=== PATIENT | male | born 1975 | race Caucasian/White ===

== ENCOUNTER 2022-11-26 20:29 | Inpatient (IN) | payer OTHER ==
[~2022-11-26] VITALS: Ht 167.6 cm; Wt 118.8 kg
[2022-11-26 23:32] LABS: BASOPHILS % 0.5 % (0.0-2.0); EOSINOPHILS % 3.1 % (0.0-5.0); HEMATOCRIT. 39.8 % (42.0-52.0); HEMOGLOBIN. 13.5 g/dL (14.0-18.0); LYMPHOCYTES % 12.3 % (20.0-50.0); MEAN CORPUSCULAR HEMOGLOBIN 30.2 pg (28.0-32.0); MEAN CORPUSCULAR VOLUME 88.8 fL (80.0-94.0); MEAN PLATELET VOLUME 7.5 fl (7.4-10.4); MONOCYTES % 7.1 % (2.0-8.0); PLATELET 295 x1000/uL (130-400); RED BLOOD CELL COUNT 4.48 mill/uL (4.7-6.1); RED CELL DISTRIBUTION WIDTH 13.4 % (11.6-14.6)
[2022-11-26 23:45] LABS: PROTHROMBIN TIME 10.3 sec (9.6-11.0)
[2022-11-26] MEDS ORDERED: PIPERACILLIN/TAZ 3.375G PREMIX 50 ML IV ONE (23:45)
[2022-11-26] MEDS ORDERED: SODIUM CHLORIDE 0.9% 1,000 ML IV ONE (23:45)
[2022-11-26] MEDS ORDERED: VANCOMYCIN 1G PREMIX 200 ML IV ONE (23:45)
[2022-11-26 23:59] LABS: CLARITY URINE CLEAR (CLEAR); COLOR URINE YELLOW (YELLOW); KETONES URINE NEGATIVE (NEGATIVE); LEUKOCYTE ESTERASE URINE NEGATIVE (NEGATIVE); NITRITE URINE NEGATIVE (NEGATIVE); OCCULT BLOOD URINE TRACE (NEGATIVE); PH URINE 5.5 (4.5-8.0); PROTEIN URINE 3+ (NEGATIVE); SPECIFIC GRAVITY URINE 1.027 (1.005-1.030); UROBILINOGEN URINE 0.2 E.U./dL (0.2-1.0)
[2022-11-27 00:02] LABS: CHLORIDE 110 mEq/L (98-107)
[2022-11-27] MEDS ORDERED: MAGNESIUM/ALUMINUM HYDROXIDE/SIMETHICONE 30ML UDC PO PRN (03:30)
[2022-11-27] MEDS ORDERED: DOCUSATE SODIUM 100MG CAPSULE PO PRN (03:30)
[2022-11-27] MEDS ORDERED: ONDANSETRON HCL 4MG/2ML INJ IV PRN (03:30)
[2022-11-27] MEDS ORDERED: GUAIFENESIN 200MG/10ML SUGAR FREE UDC PO PRN (03:30)
[2022-11-27] MEDS ORDERED: CLONIDINE 0.1MG TABLET PO PRN (03:30)
[2022-11-27] MEDS ORDERED: PIPERACILLIN/TAZOBACTAM 3.375 G in DEXTROSE 5% WATER 50 ML IV SCH (03:30)
[2022-11-27] MEDS ORDERED: ACETAMINOPHEN 325MG TABLET PO PRN ×2 (03:30)
[2022-11-27] MEDS ORDERED: IPRATROPIUM/ALBUTEROL 0.5-3(2.5)MG/3ML NEB NEB PRN (03:30)
[2022-11-27 04:48] LABS: BASOPHILS % 0.4 % (0.0-2.0); EOSINOPHILS % 3.9 % (0.0-5.0); HEMATOCRIT. 40.4 % (42.0-52.0); HEMOGLOBIN. 13.7 g/dL (14.0-18.0); LYMPHOCYTES % 16.6 % (20.0-50.0); MEAN CORPUSCULAR HEMOGLOBIN 29.9 pg (28.0-32.0); MEAN CORPUSCULAR VOLUME 88.1 fL (80.0-94.0); MEAN PLATELET VOLUME 7.6 fl (7.4-10.4); MONOCYTES % 5.5 % (2.0-8.0); NEUTROPHILS % 73.6 % (40.0-76.0); PLATELET 302 x1000/uL (130-400); RED BLOOD CELL COUNT 4.59 mill/uL (4.7-6.1); RED CELL DISTRIBUTION WIDTH 13.3 % (11.6-14.6)
[2022-11-27 04:57] LABS: CHLORIDE 108 mEq/L (98-107)
[2022-11-27 05:10] LABS: HDL CHOLESTEROL 57 mg/dL (40-59); LDL CHOLESTEROL 92 mg/dL (5-100); PHOSPHORUS 3.2 mg/dL (2.5-4.9); T4 FREE 1.05 ng/dL (0.76-1.46)
[2022-11-27 05:26] LABS: FOLIC ACID (FOLATE) SERUM >20 ng/mL ng/mL (>5.38); VITAMIN B12 SERUM 788 pg/mL (211-911)
[2022-11-27] MEDS ORDERED: PIPERACILLIN/TAZOBACTAM 3.375G in DEXT 5% WATER 50ML IV SCH (06:00)
[2022-11-27] MEDS ORDERED: PIPERACILLIN/TAZ 3.375G PREMIX 50 ML IV NR (06:45)
[2022-11-27] MEDS: ENOXAPARIN 30MG/0.3ML SYR SUBCUT SCH ×2 (10:20→21:18)
[2022-11-27] MEDS: PIPERACILLIN/TAZOBACTAM 3.375G in DEXT 5% WATER 50ML IV SCH ×2 (14:00→21:21)
[2022-11-27] MEDS ORDERED: DEXTROSE 50% WATER 50ML SYRINGE IV PRN (14:30)
[2022-11-27 16:00] VITALS: BP 140/64
[2022-11-27] MEDS: BLOOD SUGAR DIAGNOSTIC STRIP TEST SCH ×2 (17:22→21:18)
[2022-11-27] MEDS: INSULIN LISPRO 100 UNITS/ML SUBCUT SCH ×2 (17:23→21:00)
[2022-11-27 18:19] VITALS: BP 139/80
[2022-11-27 20:00] VITALS: BP 135/75
[2022-11-27] MEDS: FAMOTIDINE 20MG TABLET PO SCH (21:18)
[2022-11-28] VITALS: BP 130/75
[2022-11-28] MEDS: VANCOMYCIN 1G PREMIX 200 ML IV SCH (01:03)
[2022-11-28 04:00] VITALS: BP 152/82
[2022-11-28] MEDS: PIPERACILLIN/TAZOBACTAM 3.375G in DEXT 5% WATER 50ML IV SCH ×3 (05:29→21:55)
[2022-11-28] MEDS: BLOOD SUGAR DIAGNOSTIC STRIP TEST SCH ×4 (07:20→21:55)
[2022-11-28] MEDS: INSULIN LISPRO 100 UNITS/ML SUBCUT SCH ×4 (07:50→21:00)
[2022-11-28 08:00] VITALS: BP 149/75
[2022-11-28] MEDS: ENOXAPARIN 30MG/0.3ML SYR SUBCUT SCH ×2 (08:58→21:55)
[2022-11-28 12:00] VITALS: BP 141/75
[2022-11-28 16:00] VITALS: BP 120/70
[2022-11-28] MEDS: AMLODIPINE 10MG TABLET PO SCH (16:14)
[2022-11-28 20:00] VITALS: BP 124/61
[2022-11-28] MEDS: FAMOTIDINE 20MG TABLET PO SCH (21:54)
[2022-11-29] VITALS: BP 128/71
[2022-11-29] MEDS: VANCOMYCIN 1G PREMIX 200 ML IV SCH ×2 (01:15→18:00)
[2022-11-29 04:00] VITALS: BP 141/83
[2022-11-29] MEDS: PIPERACILLIN/TAZOBACTAM 3.375G in DEXT 5% WATER 50ML IV SCH ×3 (05:09→21:03)
[2022-11-29] MEDS: INSULIN LISPRO 100 UNITS/ML SUBCUT SCH ×4 (07:50→21:29)
[2022-11-29] MEDS: BLOOD SUGAR DIAGNOSTIC STRIP TEST SCH ×4 (07:59→21:02)
[2022-11-29 08:00] VITALS: BP 126/66
[2022-11-29] MEDS: AMLODIPINE 10MG TABLET PO SCH (09:06)
[2022-11-29] MEDS: ENOXAPARIN 30MG/0.3ML SYR SUBCUT SCH ×2 (09:06→21:03)
[2022-11-29 10:05] LABS: HEMATOCRIT 38.3 % (42.0-52.0); HEMOGLOBIN 13.1 g/dL (14.0-18.0); MEAN CORPUSCULAR HEMOGLOBIN 30.2 pg (28.0-32.0); MEAN CORPUSCULAR VOLUME 87.9 fL (80.0-94.0); PLATELET 252 x1000/uL (130-400); RED BLOOD CELL COUNT 4.36 mill/uL (4.7-6.1)
[2022-11-29 10:36] LABS: PHOSPHORUS 3.1 mg/dL (2.5-4.9)
[2022-11-29 12:26] VITALS: BP 145/63
[2022-11-29] MEDS ORDERED: LIDOCAINE HCL 1% 10 MG/ML 10ML VIAL ONE (12:54)
[2022-11-29 16:00] VITALS: BP 124/66
[2022-11-29 20:00] VITALS: BP 132/75
[2022-11-29] MEDS: FAMOTIDINE 20MG TABLET PO SCH (21:04)
[2022-11-30] VITALS: BP 133/75
[2022-11-30 04:00] VITALS: BP 129/70
[2022-11-30 06:12] LABS: HEMATOCRIT 37.2 % (42.0-52.0); HEMOGLOBIN 13.1 g/dL (14.0-18.0); MEAN CORPUSCULAR HEMOGLOBIN 30.3 pg (28.0-32.0); MEAN CORPUSCULAR VOLUME 86.3 fL (80.0-94.0); PLATELET 251 x1000/uL (130-400); RED BLOOD CELL COUNT 4.31 mill/uL (4.7-6.1)
[2022-11-30] MEDS: PIPERACILLIN/TAZOBACTAM 3.375G in DEXT 5% WATER 50ML IV SCH ×3 (06:21→23:22)
[2022-11-30] MEDS: BLOOD SUGAR DIAGNOSTIC STRIP TEST SCH ×4 (06:31→21:00)
[2022-11-30 08:00] VITALS: BP 112/63
[2022-11-30] MEDS: AMLODIPINE 10MG TABLET PO SCH (08:45)
[2022-11-30] MEDS: INSULIN LISPRO 100 UNITS/ML SUBCUT SCH ×4 (08:49→23:24)
[2022-11-30] MEDS: ENOXAPARIN 30MG/0.3ML SYR SUBCUT SCH ×2 (09:00→23:22)
[2022-11-30] MEDS: VANCOMYCIN 1G PREMIX 200 ML IV SCH (12:44)
[2022-11-30 16:00] VITALS: BP 131/78
[2022-11-30 20:00] VITALS: BP 105/55
[2022-11-30] MEDS: FAMOTIDINE 20MG TABLET PO SCH (23:21)
[2022-12-01] VITALS: BP 110/58
[2022-12-01 04:00] VITALS: BP 140/81
[2022-12-01] MEDS: PIPERACILLIN/TAZOBACTAM 3.375G in DEXT 5% WATER 50ML IV SCH (06:30)
[2022-12-01] MEDS: VANCOMYCIN 1G PREMIX 200 ML IV SCH (06:30)
[2022-12-01] MEDS: BLOOD SUGAR DIAGNOSTIC STRIP TEST SCH ×2 (06:31→12:20)
[2022-12-01] MEDS: INSULIN LISPRO 100 UNITS/ML SUBCUT SCH ×2 (07:50→12:50)
[2022-12-01 08:00] VITALS: BP 138/73
[2022-12-01] MEDS: AMLODIPINE 10MG TABLET PO SCH (09:04)
[2022-12-01] MEDS: ENOXAPARIN 30MG/0.3ML SYR SUBCUT SCH (09:04)
[2022-12-01 12:00] VITALS: BP 128/70
[2022-12-01 13:16] LABS: BASOPHILS % 1.2 % (0.0-2.0); EOSINOPHILS % 5.2 % (0.0-5.0); HEMATOCRIT. 38.9 % (42.0-52.0); HEMOGLOBIN. 13.8 g/dL (14.0-18.0); LYMPHOCYTES % 19.5 % (20.0-50.0); MEAN CORPUSCULAR HEMOGLOBIN 30.4 pg (28.0-32.0); MEAN CORPUSCULAR VOLUME 85.8 fL (80.0-94.0); MEAN PLATELET VOLUME 7.1 fl (7.4-10.4); MONOCYTES % 7.6 % (2.0-8.0); NEUTROPHILS % 66.5 % (40.0-76.0); PLATELET 275 x1000/uL (130-400); RED BLOOD CELL COUNT 4.54 mill/uL (4.7-6.1); RED CELL DISTRIBUTION WIDTH 12.7 % (11.6-14.6)
[2022-12-01 14:40] LABS: CHLORIDE 107 mEq/L (98-107)
[2022-12-01 14:45] LABS: PHOSPHORUS 3.2 mg/dL (2.5-4.9)
[2022-12-01] MEDS ORDERED: AMOX1TAB16 MT (16:21)
[2022-12-01] MEDS ORDERED: PANT20TA17 PO (16:22)
== END 2022-12-01 17:10 | disposition home or self-care (01) | DRG 853 ==
LOC: ER 20:29 → MICUSO 11-27 02:42 → 6EST 11-27 13:05
PROVIDERS: ADMIT Internal Medicine; ATTEND Internal Medicine
PROC: 0JBR0ZZ Excision of Left Foot Subcutaneous Tissue and Fascia, Open Approach (ICD-10-PCS; principal; 2022-11-28)
DX: A41.9 Sepsis, unspecified organism (principal); N17.0 Acute kidney failure with tubular necrosis; L03.116 Cellulitis of left lower limb; M86.172 Other acute osteomyelitis, left ankle and foot; E11.628 Type 2 diabetes mellitus with other skin complications; E11.621 Type 2 diabetes mellitus with foot ulcer; E11.22 Type 2 diabetes mellitus with diabetic chronic kidney disease; E11.42 Type 2 diabetes mellitus with diabetic polyneuropathy; L03.032 Cellulitis of left toe; I12.9 Hypertensive chronic kidney disease with stage 1 through stage 4 chronic kidney disease, or unspecified chronic kidney disease; N18.9 Chronic kidney disease, unspecified; L97.529 Non-pressure chronic ulcer of other part of left foot with unspecified severity; E11.69 Type 2 diabetes mellitus with other specified complication; S92.912A Unspecified fracture of left toe(s), initial encounter for closed fracture; Z79.4 Long term (current) use of insulin; X58.XXXA Exposure to other specified factors, initial encounter; Y93.89 Activity, other specified; Y92.89 Other specified places as the place of occurrence of the external cause; Y99.8 Other external cause status
CPT/HCPCS: 36415; 71045; 73630; 73721; 80048; 80053; 80061; 80202; 81003; 82607; 82746; 82962; 83036; 83605; 83735; 84100; 84145; 84439; 84443; 85025; 85027; 85379; 87070; 87077; 87186; 93005; 93971; 97162; 99285; C1893; J1650; J1815; J2543; J3370; J3490; J7030; J7060